=== PATIENT | male | born 1970 | race Caucasian/White ===

== ENCOUNTER 2020-11-09 19:52 | Emergency (ER) | payer BC ==
[2020-11-09] MEDS ORDERED: Acetaminophen/HYDROcodone 325-5 MG Tab PO ONE (19:53)
[2020-11-09] MEDS ORDERED: Ketorolac 30 MG/ML SDV IM ONE (20:04)
--- NOTE | 2020-11-09 20:11 | EDM.PDOC ---
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/d, Mon to [place], Fri is optional (today is Fri) fell outside playing football, thinks he fx both bones in his L forearm agreed to Toradol says he has a plate in his L forearm from prior fx and surgery, thinks he fx his arm at the plates just moved to area, no PCP states he has been drinking, has alcohol on breath female professional development instructor is with him - Related Data Home Meds: Home Meds NK [No Known Home Meds] 11/09/20 [History] Review of Systems - Review of Systems Review Of Systems: See Below Constitutional: Reports: No Symptoms Eyes: Reports: No Symptoms Ears: Reports: No Symptoms Nose: Reports: No Symptoms Mouth/Throat: Reports: No Symptoms Respiratory: Reports: No Symptoms Cardiovascular: Reports: No Symptoms GI/Abdominal: Reports: No Symptoms Genitourinary: Reports: No Symptoms Musculoskeletal: Reports: Arm Pain Skin: Reports: No Symptoms Neurological: Reports: No Symptoms Psychiatric: Reports: No Symptoms ED EXAM, GENERAL - Physical Exam Exam: See Below Exam Limited By: No Limitations General Appearance: Alert, WD/WN, Other (conversant, alc on breath) Extremities: Other (holding LUE gingerly against body, ice pack on mid forearm, no swell/ecchymosis, no obvious deformity, 1+ tender at distal 1/3rd, carpal bones NT, 2+ radial/ulnar pulse) Course - Orders/Labs/Meds Orders: Active Orders 24 hr Category Date Time Status Forearm 2V Lt [CR] Stat Exams 11/09/20 20:05 Taken Meds: Medications Discontinued Medications Generic Name Dose Route Start Last Admin Trade Name Navi PRN Reason Stop Dose Admin Ketorolac Tromethamine 60 mg 11/09/20 20:04 11/09/20 20:22 Ketorolac 30 Mg/Ml Sdv IM 11/09/20 20:05 60 mg ONETIME ONE Administration Ketorolac Tromethamine Confirm 11/09/20 20:23 Ketorolac 30 Mg/Ml Sdv Administered 11/09/20 20:24 Dose 30 mg .ROUTE .STK-MED ONE - Re-Assessments/Exams Free Text/Narrative Re-Assessment/Exam: 11/09/20 21:47 XR on prelim ED read with transverse break at end of plates, each bone in 2 pieces, not comminuted long arm splint applied with help of ZHEN Schmitt with stockinet, webroll, 3" fiberglass and Sher wraps x 3, tolerated well mckenna goes to [facility] and requested f/u there, info on how to go to walk-in clinic there in 3d on Thursday provided pt to call back to ED if additional questions Departure - Departure Time of Disposition: 21:42 Disposition: Home, Self-Care 01 Condition: Good Clinical Impression: Fracture of forearm, left, closed - Discharge Information *PRESCRIPTION DRUG MONITORING PROGRAM REVIEWED*: Not Applicable *COPY OF PRESCRIPTION DRUG MONITORING REPORT IN PATIENT RANCHO: Not Applicable Instructions: Forearm Fracture With Rehab-SportsMed Forms: ED Return to Work/School Form Additional Instructions: Keep splint clean and dry. For pain, take ibuprofen 200 mg 3 tabs 4 times a day for 2 days, longer if needed. Use ice for 10 minutes every 1-2 hours while awake as needed for 2 days. For pain, take hydrocodone with acetaminophen 5/325 mg 1 tab every 6 hours as needed. No alcohol within 6 hours of taking a hydrocodone. See orthopedic surgeon at [facility] in 3 days on Thursday. There information is below: Orthopedics & Sports Medicine - [facility]-[address] [place] [address]) Address [address] [facility] [place] [address] Phone General: [phone] Hours Thursday - Thursday: 8 am - 5 pm Walk-in Hours Thursday - Thursday: 8 am - 4:30 pm - My Orders Last 24 Hours: My Active Orders 11/09/20 20:05 Forearm 2V Lt [CR] Stat - Assessment/Plan Last 24 Hours: My Active Orders 11/09/20 20:05 Forearm 2V Lt [CR] Stat
[2020-11-09] MEDS ORDERED: Ketorolac 30 MG/ML SDV ONE (20:23)
--- NOTE | 2020-11-12 10:45 | CR ---
LEFT FOREARM INDICATION: Fell outside, pain mid forearm. FINDINGS: Frontal and lateral views of the left forearm were obtained 11/09/20 - no comparison. Acute fractures of the distal shafts of the radius and ulna are noted with significant anterior angulation at the fracture sites. Plates are also noted extending across most of the shafts of both the radius and ulna for previous healed fracture sites. There appear to be some minimal degenerative changes at the medial elbow joint compartment. Fragmentation is noted at the ulnar styloid which may represent a chip fracture fragment that did not unite. Periosteal new bone formation is noted at the shaft of the fourth metacarpal which may represent a healing fracture site. IMPRESSION: 1. Acute fractures of the distal radius and ulnar shafts with significant angulation anteriorly at the fracture sites. 2. Unhealed - nonunion ulnar styloid chip fracture fragment. 3. Apparent healing fracture of the mid shaft of the fourth metacarpal. 4. Plates across both the radial and ulnar shafts for previous healed fracture sites appear intact. MTDD
== END 2020-11-09 22:00 | disposition home or self-care (01) ==
LOC: FB.ED 19:52
DX: S52.592A Other fractures of lower end of left radius, initial encounter for closed fracture (principal); S52.692A Other fracture of lower end of left ulna, initial encounter for closed fracture; W18.39XA Other fall on same level, initial encounter; Y93.61 Activity, american tackle football
CPT/HCPCS: 29105; 73090; 96372; 99283; A9270; J1885

== ENCOUNTER 2021-08-16 18:23 | Emergency (ER) | payer BC ==
[2021-08-16] MEDS ORDERED: Acetaminophen/oxyCODONE 325-5 MG Tab PO ONE (18:24)
[2021-08-16] MEDS: Ketorolac 30 MG/ML SDV IM STA (18:44)
[2021-08-16] MEDS: Acetaminophen/oxyCODONE 325-5 MG Tab PO STA (18:53)
== END 2021-08-16 19:37 | disposition home or self-care (01) ==
LOC: FB.ED 18:23
DX: S42.022A Displaced fracture of shaft of left clavicle, initial encounter for closed fracture (principal); W22.09XA Striking against other stationary object, initial encounter
CPT/HCPCS: 73000-RT; 96372; 99283; A9270-GY; J1885

== ENCOUNTER 2024-02-16 20:59 | Emergency (ER) | payer SELFPAY ==
[2024-02-16] MEDS: Diphtheria,Pertussis(Acell),Tetanus Vaccine 0.5 ML Syringe IM ONE (22:28)
== END 2024-02-16 22:30 | disposition home or self-care (01) ==
LOC: FB.ED 20:59
DX: S01.01XA Laceration without foreign body of scalp, initial encounter (principal); F10.120 Alcohol abuse with intoxication, uncomplicated; Y90.9 Presence of alcohol in blood, level not specified; W22.8XXA Striking against or struck by other objects, initial encounter; Z23 Encounter for immunization
CPT/HCPCS: 12002; 90471; 90715; 99284-25